=== PATIENT | female | born 1945 | race Caucasian/White ===

== ENCOUNTER 2018-05-12 08:40 | Observation (INO) | payer MEDICARE, OTHER ==
[~2018-05-12] VITALS: Ht 160 cm; Wt 96.0 kg
[2018-05-12] VITALS (12 sets, daily range): BP systolic 122–171; BP diastolic 58–109; PULSE 58–139; RESP 16–20; TEMP 95.7–98.1; O2SAT 95–100
[2018-05-12] MEDS ORDERED: METOPROLOL TARTRATE 5 MG/5 ML VIAL IV PUSH STA (09:21)
--- NOTE | 2018-05-12 09:29 | PD ---
HPI Chief Complaint: Chest Pain Time Seen by Provider: 09:14 Travel History International Travel<30 days: No Contact w/Intl Traveler<30days: No Traveled to known affect area: No History of Present Illness HPI 72yo F with PMH of HTN and breast CA 1 year ago presents to the ED with c/o headache and chest pain today. Said she woke up at 7:30am and has diffuse headache. She then started having left sided chest pressure and it is intermittent. Pain is moderate in severity. No exacerbating or alleviating factor. Said it was associated with tingling in her right arm and a little tingling in left arm. Denies any fever, neck pain, focal weakness or numbness, sob, n/v, abdominal pain. Pt does not have a ore puncher and is visiting from [place]. PFSH Past Medical History Arthritis: Yes Cancer: Yes (right breast cancer) Diminished Hearing: No Hypertension: Yes Radiation Therapy: Yes ?: Not Past Surgical History Abdominal Surgery: Yes (hernia sx/ inguinal/bowel resection) Eye Surgery: Yes (retinal detachment bilateral) Tonsillectomy: Yes Other Surgery: Yes (right breat lumpectomy) Social History Alcohol Use: No Tobacco Use: No Substance Use: No Allergies-Medications (Allergen,Severity, Reaction): Coded Allergies: Sulfa (Sulfonamide Antibiotics) (Verified Allergy, Unknown, 05/12/18) Reported Meds & Prescriptions Reported Meds & Active Scripts Active Reported Anastrozole 1 Mg Tab 1 Mg PO DAILY Valsartan 160 Mg Tab 160 Mg PO HS Review of Systems Except as stated in HPI: all other systems reviewed are Neg Physical Exam Narrative GENERAL: 72yo F in mild distress. SKIN: Focused skin assessment warm/dry. HEAD: Atraumatic. Normocephalic. EYES: Pupils equal and round at 3mm bilaterally. EOMI. ENT: No nasal bleeding or discharge. Mucous membranes pink and moist. NECK: Trachea midline. No JVD. No ttp. No nuchal rigidity. CARDIOVASCULAR: Regular rate and rhythm. No murmur appreciated. RESPIRATORY: No accessory muscle use. Clear to auscultation. Breath sounds equal bilaterally. GASTROINTESTINAL: Abdomen soft, non-tender, nondistended. MUSCULOSKELETAL: No obvious deformities. No clubbing. No cyanosis. No edema. NEUROLOGICAL: Awake and alert. No obvious cranial nerve deficits. Motor grossly within normal limits in all extremities. Sensation intact in all extremities. Normal speech. PSYCHIATRIC: Appropriate mood and affect; insight and judgment normal. Data Data Last Documented VS Vital Signs Date Time Temp Pulse Resp B/P (MAP) Pulse Ox O2 Delivery O2 Flow Rate FiO2 05/12/18 11:30 58 20 122/66 (84) 96 Room Air 05/12/18 08:49 97.6 Orders Orders Electrocardiogram (05/12/18 ) Basic Metabolic Panel (Bmp) (05/12/18 09:21) Complete Blood Count With Diff (05/12/18 09:21) Magnesium (Mg) (05/12/18 09:21) Prothrombin Time / Inr (Pt) (05/12/18 09:21) Act Partial Throm Time (Ptt) (05/12/18 09:21) Troponin I (05/12/18 09:21) Chest, Single Ap (05/12/18 09:21) Metoprolol Tartrate Inj (Lopressor Inj) (05/12/18 09:21) Nitroglycerin Sl (Nitrostat Sl) (05/12/18 09:30) Ct Brain W/O Iv Contrast(Rout) (05/12/18 ) Thyroid Stimulating Hormone (05/12/18 09:25) Free T3 (05/12/18 12:00) Admit Order (Ed Use Only) (05/12/18 12:21) Labs Laboratory Tests Test 05/12/18 09:25 05/12/18 10:45 White Blood Count 5.0 TH/MM3 Red Blood Count 4.59 MIL/MM3 Hemoglobin 14.1 GM/DL Hematocrit 41.6 % Mean Corpuscular Volume 90.6 FL Mean Corpuscular Hemoglobin 30.6 PG Mean Corpuscular Hemoglobin Concent 33.8 % Red Cell Distribution Width 12.7 % Platelet Count 235 TH/MM3 Mean Platelet Volume 9.2 FL Neutrophils (%) (Auto) 53.5 % Lymphocytes (%) (Auto) 36.6 % Monocytes (%) (Auto) 6.6 % Eosinophils (%) (Auto) 2.6 % Basophils (%) (Auto) 0.7 % Neutrophils # (Auto) 2.7 TH/MM3 Lymphocytes # (Auto) 1.8 TH/MM3 Monocytes # (Auto) 0.3 TH/MM3 Eosinophils # (Auto) 0.1 TH/MM3 Basophils # (Auto) 0.0 TH/MM3 CBC Comment DIFF FINAL Differential Comment Prothrombin Time 10.1 SEC Prothromb Time International Ratio 1.0 RATIO Activated Partial Thromboplast Time 26.8 SEC Blood Urea Nitrogen 14 MG/DL Creatinine 0.71 MG/DL Random Glucose 100 MG/DL Calcium Level 9.0 MG/DL Magnesium Level 2.2 MG/DL Sodium Level 145 MEQ/L Potassium Level 3.9 MEQ/L Chloride Level 113 MEQ/L Carbon Dioxide Level 22.7 MEQ/L Anion Gap 9 MEQ/L Estimat Glomerular Filtration Rate 81 ML/MIN Troponin I LESS THAN 0.02 NG/ML Free Triiodothyronine (T3) pg/dL 2.39 PG/ML Thyroid Stimulating Hormone 3rd Gen 4.190 uIU/ML [facility] Medical Decision Making Medical Screen Exam Complete: Yes Emergency Medical Condition: Yes Interpretation(s) EKG: Aflutter at 137bpm. Regular narrow tachycardia. No p wave. Differential Diagnosis ACS vs. electrolyte abnormality vs. dehydration Narrative Course 72yo F with left sided chest pain and headache. Headache has resolved. HR was in the 130s and looks like aflutter and regular. Never had this before. HR is now in the 60s after 2.5mg of lopressor. Labs reviewed, no leukocytosis. H/H normal. Troponin negative. TSH mildly elevated, added freeT3. CXR negative. CT brain negative. Discussed with Dr. Baig and he said she is appropriate for chest pain center. Critical Care Narrative Aggregate critical care time was 35 minutes. Time to perform other separately billable procedures was not included in the critical care time. My time did not include minutes spent treating any other patients simultaneously or on activities that did not directly contribute to the patient's treatment. The services I provided to this patient were to treat and/or prevent clinically significant deterioration that could result in: cardiovascular collapse or . I provided critical care services requiring my management, as noted below: Chart data review, documentation time, medication orders and management, vital sign assessments/reviewing monitor data, ordering and reviewing lab tests, ordering and interpreting/reviewing x-rays and diagnostic studies, care of the patient and discussion of the patient with the admitting physicians. Diagnosis Primary Impression: Chest pain Qualified Codes: R07.9 - Chest pain, unspecified Additional Impression: Atrial flutter Qualified Codes: I48.92 - Unspecified atrial flutter Admitting Information Admitting Physician Requests: Observation Leticia Alston DO May 12, 2018 09:29
[2018-05-12] MEDS ORDERED: NITROGLYCERIN 0.4 MG SL 25 TABS/BTL SL PRN (09:30)
--- NOTE | 2018-05-12 09:50 | RADRPT ---
EXAM DATE: 05/12/2018 9:47 AM EDT AGE/SEX: 72 years / Female INDICATIONS: Chest pain. CLINICAL DATA: This is the patient's initial encounter. Patient reports that signs and symptoms have been present for 1 day and indicates a pain score of 0/10. MEDICAL/SURGICAL HISTORY: Vertigo. None. COMPARISON: No prior exams available for comparison. FINDINGS: A single AP view of the chest demonstrates the lungs to be symmetrically aerated without evidence of mass, infiltrate or effusion. Mild cardiomegaly. The cardiomediastinal contours are unremarkable. O sseous structures are intact. CONCLUSION: No acute cardiopulmonary disease Electronically signed by: Jostin Kendrick MD 05/12/2018 9:49 AM EDT
[2018-05-12 09:57] LABS: AUTOMATED NEUTROPHIL # 2.7 TH/MM3 (1.8-7.7); BASOPHIL % 0.7 % (0.0-2.0); EOSINOPHIL # 0.1 TH/MM3 (0-0.4); EOSINOPHIL % 2.6 % (0.0-4.0); HEMATOCRIT 41.6 % (35.0-46.0); HEMOGLOBIN 14.1 GM/DL (11.6-15.3); LYMPH % 36.6 % (9.0-44.0); LYMPHOCYTE # 1.8 TH/MM3 (1.0-4.8); MEAN CELL VOLUME 90.6 FL (80.0-100.0); MEAN CORPUSCULAR HEMOGLOBIN 30.6 PG (27.0-34.0); MEAN CORPUSCULAR HGB CONC 33.8 % (32.0-36.0); MEAN PLATELET VOLUME 9.2 FL (7.0-11.0); MONO % 6.6 % (0.0-8.0); MONOCYTE # 0.3 TH/MM3 (0-0.9); NEUT % 53.5 % (16.0-70.0); PLATELET COUNT 235 TH/MM3 (150-450); RED BLOOD COUNT 4.59 MIL/MM3 (4.00-5.30); RED CELL DISTRIBUTION WIDTH 12.7 % (11.6-17.2)
[2018-05-12 10:06] LABS: PROTHROMBIN TIME - PATIENT 10.1 SEC (9.8-11.6)
--- NOTE | 2018-05-12 10:10 | RADRPT ---
EXAM DATE: 05/12/2018 9:57 AM EDT AGE/SEX: 72 years / Female INDICATIONS: Bilateral arm numbness, worse on the right side. Headache. CLINICAL DATA: This is the patient's initial encounter. Patient reports that signs and symptoms have been present for 1 day and indicates a pain score of 4/10. MEDICAL/SURGICAL HISTORY: Hypertension. Carcinoma, breast. Bilateral retinal detachment. None. RADIATION DOSE: 56.35 CTDI (mGy) COMPARISON: No prior exams available for comparison. TECHNIQUE: CT of the head without contrast. Using automated exposure control and adjustment of the mA and/or kV according to patient size, radiation dose was kept as low as reasonably achievable to ob tain optimal diagnostic quality images. DICOM format image data is available electronically for revi ew and comparison. FINDINGS: Cerebrum: The ventricles are normal for age. No evidence of midline shift, mass lesion, hemorrhage or acute infarction. No extraaxial fluid collections are seen. Posterior Fossa: The cerebellum and brainstem are intact. The 4th ventricle is midline. The cerebe llopontine angle is unremarkable. Extracranial: The visualized portion of the orbits is intact. Skull: The calvaria is intact. No evidence of skull fracture. CONCLUSION: 1. No acute intracranial abnormality Electronically signed by: Jostin Kendrick MD 05/12/2018 10:08 AM EDT
[2018-05-12 10:37] LABS: TROPONIN I LESS THAN 0.02 NG/ML (0.02-0.05)
[2018-05-12 11:30] LABS: BICARBONATE 22.7 MEQ/L (21.0-32.0); BLOOD UREA NITROGEN 14 MG/DL (7-18); CHLORIDE 113 MEQ/L (98-107); CREATININE 0.71 MG/DL (0.50-1.00); GLOMERULAR FILTRATION RATE 81 ML/MIN (>89); GLUCOSE,RANDOM 100 MG/DL (74-106); MAGNESIUM 2.2 MG/DL (1.5-2.5); SODIUM (NA) 145 MEQ/L (136-145)
[2018-05-12 14:43] LABS: TROPONIN I LESS THAN 0.02 NG/ML (0.02-0.05)
[2018-05-12] MEDS ORDERED: ACETAMINOPHEN 500 MG CPLT PO PRN (15:15)
[2018-05-12] MEDS ORDERED: ONDANSETRON ODT 4 MG TAB PO PRN (15:15)
[2018-05-12] MEDS ORDERED: SODIUM CHLORIDE 0.9% FLUSH 10 ML FLUSH IV FLUSH PRN (15:15)
--- NOTE | 2018-05-12 15:17 | HHI.HP ---
[facility] Service Chest pain center Primary Care Physician Patient visiting from [place] is well-established with physicians at home Chief Complaint Headache and chest pressure History of Present Illness Pleasant 72-year-old lady visiting from [place] awoke at 730 this morning with a diffuse severe headache which is very unusual for her. She also noticed that her heart seemed to be beating somewhat fast and checked her blood pressure which at that time was elevated at 175/100. Her pulse was also noted at 140. Along with this she noted that her arms felt odd tingling in that she had a heaviness in the mid upper chest. This is unlike any symptoms she has had previously. Although there was no pain she would right heaviness is 3 out of 10. There were no apparent precipitating or relieving events and no associated symptoms. The entire episode lasted until her arrival in the emergency room and her blood pressure was brought down and her heart rate slowed. On arrival in the emergency room she was found to be in atrial fibrillation but responded rapidly to a single dose of beta-nacho. She has remained in sinus rhythm since. She has no prior history of arrhythmia or of coronary artery disease. She had some sort of the test several years ago and was told that her coronary arteries were 100% open. She is on medication for her blood pressure and has a pill with her but she does not know the name of it nor can we identify. She takes this medication once a day and Voltaren for her arthritis twice a day. She is complicated by additional medical history and is also noted that she sleeps with a CPAP. Review of Systems Cardiovascular: COMPLAINS OF: See HPI Past Family Social History Allergies: Coded Allergies: Sulfa (Sulfonamide Antibiotics) (Verified Allergy, Unknown, 05/12/18) Past Medical History Patient has arthritis Underwent treatment for breast cancer last year including chemotherapy and radiation Hypertension Past Surgical History She has had an appendectomy hernia repair 6 times A bowel resection for nonmalignant mass Eye surgery both eyes for detached retina Lumpectomy right breast Reported Medications Reported Meds & Active Scripts Active Active Prescriptions or Reported Medications Unobtainable Active Ordered Medications Current Medications Medications (Trade) Dose Ordered Sig/Ben Route Start Time Stop Time Status Last Admin (Nitrostat Sl) 0.4 mg Q5M PRN SL 05/12/18 09:30 Family History Mother about age 84 apparently from dementia Father age 80 of suicide No history of coronary disease in the family that she knows of Social History Denies alcohol other than an occasional beer tobacco or substance abuse She is visiting with her from [place] Physical Exam Vital Signs Vital Signs Date Time Temp Pulse Resp B/P (MAP) Pulse Ox O2 Delivery O2 Flow Rate FiO2 05/12/18 14:30 68 18 142/72 (95) 98 Room Air 05/12/18 13:00 58 19 125/58 (80) 96 Room Air 05/12/18 11:30 58 20 122/66 (84) 96 Room Air 05/12/18 10:33 98 20 96 Room Air 05/12/18 10:05 138 20 129/79 (96) 95 Room Air 05/12/18 09:36 138 96 Room Air 05/12/18 09:30 139 20 171/109 (129) 95 Room Air 05/12/18 08:49 97.6 138 16 168/94 (118) 96 Physical Exam Well-nourished well-developed slightly obese woman in no acute distress resting comfortably in sinus rhythm Head normocephalic atraumatic Eyes pupils mildly dilated but equal and respond to both direct and consensual stimulation extraocular movements are intact and bilateral intraocular lenses are noted Mouth mucous membranes moist and well papillated no lesions Neck supple no JVD no masses nodes or bruits Chest mildly diminished breath sounds but symmetric with no rales wheezes or rhonchi Cardiovascular regular sinus rhythm PMI is not displaced S1 and S2 are audible with no gallop or rub. There is a soft 2/6 systolic murmur best heard at the upper right sternal border The abdomen is obese soft nontender no guarding or rebound no hepatosplenomegaly well-healed low midline scar Extremities 2+ edema to the mid tibial area but with good pulses bilaterally Psychologically patient is intact with good memory and apparent good judgment Laboratory Laboratory Tests Test 05/12/18 09:25 05/12/18 10:45 05/12/18 14:05 White Blood Count 5.0 Red Blood Count 4.59 Hemoglobin 14.1 Hematocrit 41.6 Mean Corpuscular Volume 90.6 Mean Corpuscular Hemoglobin 30.6 Mean Corpuscular Hemoglobin Concent 33.8 Red Cell Distribution Width 12.7 Platelet Count 235 Mean Platelet Volume 9.2 Neutrophils (%) (Auto) 53.5 Lymphocytes (%) (Auto) 36.6 Monocytes (%) (Auto) 6.6 Eosinophils (%) (Auto) 2.6 Basophils (%) (Auto) 0.7 Neutrophils # (Auto) 2.7 Lymphocytes # (Auto) 1.8 Monocytes # (Auto) 0.3 Eosinophils # (Auto) 0.1 Basophils # (Auto) 0.0 CBC Comment DIFF FINAL Differential Comment Prothrombin Time 10.1 Prothromb Time International Ratio 1.0 Activated Partial Thromboplast Time 26.8 Blood Urea Nitrogen 14 Creatinine 0.71 Random Glucose 100 Calcium Level 9.0 Magnesium Level 2.2 Sodium Level 145 Potassium Level 3.9 Chloride Level 113 Carbon Dioxide Level 22.7 Anion Gap 9 Estimat Glomerular Filtration Rate 81 Troponin I LESS THAN 0.02 LESS THAN 0.02 Free Triiodothyronine (T3) pg/dL 2.39 Thyroid Stimulating Hormone 3rd Gen 4.190 Total Creatine Kinase 92 Result Diagram: 05/12/18 0925 05/12/[address] of the head is negative Chest x-ray unremarkable Course Patient has ruled out with enzymes 2. If third set is unremarkable she will be evaluated with a nuclear stress test in the a.m. If this is negative after full discussion with the patient and she will be discharged to return directly to [place] for follow-up with her primary care physician and doctors in that area. She understands that there is some risk for recurrent arrhythmia and possible blood clot but this is offset in favor of having a coordinated evaluation and therapy plan devised by her established physicians. and are very agreeable to this approach Caprini VTE Risk Assessment Caprini VTE Risk Assessment: No/Low Risk (score <= 1) Caprini Risk Assessment Model Point Value = 1 Point Value = 2 Point Value = 3 Point Value = 5 Age 41-60 Minor surgery BMI > 25 kg/m2 Swollen legs Varicose veins or History of unexplained or recurrent spontaneous Oral contraceptives or hormone replacement Sepsis (< 1 month) Serious lung disease, including pneumonia (< 1 month) Abnormal pulmonary function Acute myocardial infarction Congestive heart failure (< 1 month) History of inflammatory bowel disease Medical patient at bed rest Age 61-74 Arthroscopic surgery Major open surgery (> 45 min) Laparoscopic surgery (> 45 min) Malignancy Confined to bed (> 72 hours) Immobilizing plaster cast Central venous access Age >= 75 History of VTE Family history of VTE Factor V Leiden Prothrombin [id number] Lupus anticoagulant Anticardiolipin antibodies Elevated serum homocysteine Heparin-induced thrombocytopenia Other congenital or acquired thrombophilia Stroke (< 1 month) Elective arthroplasty Hip, pelvis, or leg fracture Acute spinal cord injury (< 1 month) Prophylaxis Regimen Total Risk Factor Score Risk Level Prophylaxis Regimen 0-1 Low Early ambulation 2 Moderate Order ONE of the following: *Sequential Compression Device (SCD) *Heparin 5000 units SQ BID 3-4 Higher Order ONE of the following medications: *Heparin 5000 units SQ TID *Enoxaparin/Lovenox 40 mg SQ daily (WT < 150 kg, CrCl > 30 mL/min) *Enoxaparin/Lovenox 30 mg SQ daily (WT < 150 kg, CrCl > 10-29 mL/min) *Enoxaparin/Lovenox 30 mg SQ BID (WT < 150 kg, CrCl > 30 mL/min) AND/OR *Sequential Compression Device (SCD) 5 or more Highest Order ONE of the following medications: *Heparin 5000 units SQ TID (Preferred with Epidurals) *Enoxaparin/Lovenox 40 mg SQ daily (WT < 150 kg, CrCl > 30 mL/min) *Enoxaparin/Lovenox 30 mg SQ daily (WT < 150 kg, CrCl > 10-29 mL/min) *Enoxaparin/Lovenox 30 mg SQ BID (WT < 150 kg, CrCl > 30 mL/min) AND *Sequential Compression Device (SCD) Assessment and Plan Problem List: (1) Atrial fibrillation ICD Codes: I48.91 - Unspecified atrial fibrillation Status: Acute Plan: Atrial fibrillation resolved rapidly on arrival in the emergency room. Rhythm has been stable throughout her stay. Patient is very aware that she needs further evaluation and therapy for this problem. Patient and prefer to return to [place] for follow-up with their established physicians. After discussion I am agreeable if she rules out for ischemic heart disease for her to do so. (2) Hypertension ICD Codes: I10 - Essential (primary) hypertension Status: Acute Plan: Patient's blood pressure has stabilized since admission and she is on ongoing therapy. No change will be made but she is instructed to follow-up with her primary care physician on return home (3) Headache ICD Codes: R51 - Headache Status: Resolved (4) Breast cancer ICD Codes: C50.919 - Malignant neoplasm of unspecified site of unspecified female breast Status: Resolved (5) Atrial flutter ICD Codes: I48.92 - Unspecified atrial flutter Status: Acute (6) Chest pain ICD Codes: R07.9 - Chest pain, unspecified Status: Acute Problem Qualifiers (1) Atrial flutter: Qualified Codes: I48.92 - Unspecified atrial flutter (2) Chest pain: Qualified Codes: R07.9 - Chest pain, unspecified Caleb Baig MD May 12, 2018 15:17
--- NOTE | 2018-05-12 16:37 | EKG ---
Date Performed: 05/12/2018 Time Performed: 09:04:56 PTAGE: 72 years EKG: ATRIAL FLUTTER/TACHYCARDIA WITH RAPID VENTRICULAR RESPONSE RIGHT BUNDLE BRANCH BLOCK ABNORM AL ECG New-onset atrial flutter with RVR and diffuse ST depression Cannot rule out ischemia clinical correlation recommended NO PREVIOUS TRACING DOCTOR: Caleb Baig Interpretating Date/Time 05/12/2018 16:35:35
[2018-05-12] MEDS ORDERED: LORazepam 0.5 MG TAB PO PRN (17:45)
[2018-05-12] MEDS ORDERED: MORPHINE SULFATE 4 MG/ML INJ IV PRN (17:45)
[2018-05-12] MEDS ORDERED: ACETAMINOPHEN/HYDROcodone 325 MG/5 MG TAB PO PRN (17:45)
[2018-05-12 18:07] LABS: TROPONIN I LESS THAN 0.02 NG/ML (0.02-0.05)
[2018-05-12] MEDS ORDERED: VALS1TAB65 PO (18:34)
[2018-05-12] MEDS ORDERED: ANAS1TAB PO (18:34)
[2018-05-12] MEDS ORDERED: METOPROLOL TARTRATE 50 MG TAB PO ONE (21:00)
[2018-05-12] MEDS: SODIUM CHLORIDE 0.9% FLUSH 10 ML FLUSH IV FLUSH SCH (21:00)
[2018-05-13 00:04] VITALS: BP 133/66; PULSE 66; RESP 16; TEMP 98.5; O2SAT 95
[2018-05-13 03:28] VITALS: BP 137/76; PULSE 70; RESP 16; TEMP 98.4; O2SAT 95
[2018-05-13 08:00] VITALS: PULSE 72
[2018-05-13 08:31] VITALS: BP 152/71; PULSE 66; RESP 18; TEMP 97.9; O2SAT 95
--- NOTE | 2018-05-13 08:57 | EKG ---
Date Performed: 05/12/2018 Time Performed: 13:52:18 PTAGE: 72 years EKG: SINUS BRADYCARDIA NONSPECIFIC T-WAVE ABNORMALITY BORDERLINE ECG Return to Sinus rhythm with normalization of ST-T changes PREVIOUS TRACING : 05/12/2018 09.04 DOCTOR: Caleb Baig Interpretating Date/Time 05/13/2018 08:55:17
[2018-05-13] MEDS ORDERED: ASPIRIN 325 MG TAB PO SCH (09:00)
[2018-05-13] MEDS: SODIUM CHLORIDE 0.9% FLUSH 10 ML FLUSH IV FLUSH SCH (09:16)
[2018-05-13] MEDS ORDERED: REGADENOSON INJ 0.4 MG/5 ML SYR ONE (10:02)
--- NOTE | 2018-05-13 11:48 | RADRPT ---
EXAM DATE: 05/13/2018 11:28 AM EDT AGE/SEX: 72 years / Female INDICATIONS:Angina. . Chest pain. CLINICAL DATA: This is the patient's initial encounter. Patient reports that signs and symptoms have been present for 1 day and indicates a pain score of 2/10. MEDICAL/SURGICAL HISTORY: Carcinoma, breast. Hypertension. Mastectomy, right. Bilateral knee s urgery. COMPARISON: No prior exams available for comparison. DOSE: 8.1 mCi Tc 99m Myoview at rest 25.8 mCi [id number] at stress 0.4 mg Lexiscan STRESS SYMPTOMS: Short of breath. EJECTION FRACTION: >70 % TECHNIQUE: The patient underwent pharmacologic stress with infusion of prescribed dose. Continuous ECG tracing was monitored during stress. Gated SPECT imaging was performed after stress and conventi onal SPECT imaging was performed at rest. The examination was performed on a SPECT/CT scanner, both attenuation and non-corrected datasets were reviewed. FINDINGS: Distribution: The maximum perfused segment at stress is in the anterolateral wall. Perfusion Study: No reversible perfusion defects. Matched defect towards the apex. Gated Study: There are intact wall motion and wall thickening without hypokinetic or dyskinetic segm ents. The ejection fraction is calculated at >70%. RISK CATEGORY: Low (<1% Annual Motality Rate) CONCLUSION: 1. No reversible perfusion defects to suggest ischemia. 2. Normal ejection fraction Electronically signed by: Jostin Kendrick MD 05/13/2018 11:47 AM EDT
[2018-05-13 11:54] VITALS: BP 142/72; PULSE 69; RESP 17; TEMP 98.7; O2SAT 96
--- NOTE | 2018-05-13 12:33 | HHI.DCPOC ---
Discharge Care Plan Diagnosis: (1) Atrial flutter (2) Atrial fibrillation (3) Chest pain (4) Hypertension Goals to Promote Your Health * To prevent worsening of your condition and complications * To maintain your health at the optimal level Directions to Meet Your Goals Take your medications as prescribed Follow your dietary instruction Follow activity as directed Keep your appointments as scheduled Take your immunizations and boosters as scheduled If your symptoms worsen call your PCP, if no PCP go to Urgent Care Center or Emergency Room Smoking is Dangerous to Your Health. Avoid second hand smoke Call the 24-hour hour crisis hotline for domestic abuse at [facility] May 13, 2018 12:33
--- NOTE | 2018-05-13 16:27 | TR ---
Date Performed: 05/13/2018 Time Performed: 10:25:32 DOCTOR: Caleb Baig DRUG LIST: CLINICAL HISTORY: REASON FOR TEST: REASON FOR ENDING: OBSERVATION: CONCLUSION: Lexiscan stress test was performed under standard four minute protocol. Radionuclide was injected one minute prior to ending the test. No electrocardiographic abormalities were present to suggest ischemia. Nuclear imaging and interpretation are pending. COMMENTS:
== END 2018-05-13 14:11 | disposition home or self-care (01) ==
LOC: NEPC 08:40 → NEDA 12:22 → NEPGCP 15:11
PROVIDERS: ADMIT Internal Medicine Interventional Cardiology; ATTEND Internal Medicine Interventional Cardiology
DX: I48.92 Unspecified atrial flutter (principal); Z85.3 Personal history of malignant neoplasm of breast; I10 Essential (primary) hypertension; R51 Headache; R20.2 Paresthesia of skin; M19.90 Unspecified osteoarthritis, unspecified site; R94.6 Abnormal results of thyroid function studies; Z79.899 Other long term (current) drug therapy; I48.91 Unspecified atrial fibrillation; I45.10 Unspecified right bundle-branch block; R94.31 Abnormal electrocardiogram [ECG] [EKG]
CPT/HCPCS: 70450; 71045; 78452; 80048; 82550; 83735; 84443; 84481; 84484; 85025; 85610; 85730; 93005; 93017; 96374; 99291; A9502; G0378; J2785